=== PATIENT | male | born 1960 | race Caucasian/White ===

== ENCOUNTER 2017-11-05 17:33 | Emergency (ER) | payer OTHER ==
[~2017-11-05] VITALS: Ht 170.2 cm; Wt 95.2 kg
[~2017-11-05 17:33] MED LIST: ALBU90OI61 INH; AMOX500 PO; BENZ100A PO; CODGUAEL PO; CYCL10 PO; DOXY100 PO; Flonase 0.05% N16 GM; HYDACE10B PO; HYDACE5 PO; LORA10ER PO; LORA2 PO; METPRE4DP PO; NAPR500 PO; OXYACE5T PO; PENVK250 PO; PENVK500 PO; RXPENVK250 PO; Zithromax250 MG PO
[2017-11-05 18:45] LABS: BASOPHILS ABSOLUTE AUTO 0.06 K/mm3 (0.00-0.23); BASOPHILS PERCENT AUTO 1 % (0-2); EOSINOPHILS PERCENT AUTO 1 % (0-6); Hematocrit 48.9 % (37.0-53.0); Hemoglobin 16.7 g/dL (13.5-17.5); IMMATURE GRAN ABSOLUTE AUTO 0.01 K/mm3 (0.00-0.10); IMMATURE GRAN PERCENT AUTO 0 % (0-1); LYMPHOCYTES ABSOLUTE AUTO 2.44 K/mm3 (0.84-5.20); LYMPHOCYTES PERCENT AUTO 35 % (21-46); MONOCYTES ABSOLUTE AUTO 0.72 K/mm3 (0.16-1.47); MONOCYTES PERCENT AUTO 10 % (4-13); Mean Corpuscular HGB 33.1 pg (26.0-34.0); Mean Corpuscular HGB Conc 34.2 g/dL (31.5-36.5); Mean Corpuscular Volume 97 fL (80-100); Mean Platelet Volume 10.9 fL (9.1-12.4); NEUTROPHILS ABSOLUTE AUTO 3.65 K/mm3 (1.96-9.15); NEUTROPHILS PERCENT AUTO 52 % (41-73); Platelet Count 190 K/mm3 (150-400); RDW Coefficient Variation 13.2 % (11.7-14.2); RDW Standard Deviation 47.4 fL (35.1-46.3); Red Blood Cell Count 5.05 M/mm3 (4.30-5.90); White Blood Cell Count 6.98 K/mm3 (4.00-11.30)
[2017-11-05 18:57] LABS: Alanine Aminotransfer (ALT/SGP 83 U/L (12-78); Albumin, Blood 3.5 g/dL (3.4-5.0); Alk Phos 65 U/L (50-136); Anion Gap 12 mmol/L (6-16); Aspartate Aminotrans (AST/SGOT 59 U/L (12-37); Bilirubin, Total 0.4 mg/dL (0.1-1.0); Blood Urea Nitrogen 13 mg/dL (8-24); Bun/Creatinine Ratio 15.9 (12.0-20.0); CO2, Blood 24 mmol/L (21-32); Calcium, Blood 8.5 mg/dL (8.5-10.1); Chloride, Blood 106 mmol/L (98-108); Creatinine, Blood 0.82 mg/dL (0.60-1.20); Globulin, Blood 3.6 g/dL (2.2-4.0); Glomerular Filtration Rate >60 (60-); Glucose, Blood 102 mg/dL (70-99); Potassium, Blood 3.4 mmol/L (3.5-5.5); Sodium, Blood 142 mmol/L (136-145); Total Protein, Blood 7.1 g/dL (6.4-8.2)
[2017-11-05 19:00] LABS: International Normalized Ratio 1.04; Prothrombin Time Results 10.7 Sec (9.7-11.5)
[2017-11-05 21:07] LABS: Source, Urine Clean Catch
[2017-11-05 21:10] LABS: Bilirubin, Urine Neg (Neg); Blood, Urine Neg (Neg); Glucose Qualitative, Urine Neg (Neg); Ketones, Urine Neg (Neg); Leukocyte Esterase, Urine Neg (Neg); Nitrite, Urine Neg (Neg); Protein, Urine Neg (Neg); Specific Gravity, Urine 1.015 (1.003-1.022); Urobilinogen, Urine NORM (Normal)
[2017-11-05 21:19] LABS: Appearance, Urine Clear (Clear); Color, Urine Yellow (P-Yellow)
[2017-11-05] MEDS ORDERED: Zofran Odt4 MG PO (21:24)
[2017-11-05] MEDS ORDERED: OMEPRAZOLE MAGN20 MG PO (21:41)
== END 2017-11-05 22:09 | disposition home or self-care (01) ==
LOC: ER 17:33
PROVIDERS: Emergency Medicine
DX: R10.32 Left lower quadrant pain (principal); R11.2 Nausea with vomiting, unspecified; F17.210 Nicotine dependence, cigarettes, uncomplicated
CPT/HCPCS: 36415; 74177; 80053; 81003; 83690; 85025; 85610; 86850; 86900; 86901; 96361; 96365; 96366; 96375; 96376; 99284-25; C9113; J2405; J3010; J7030; Q9967

== ENCOUNTER 2017-11-14 20:50 | Emergency (ER) | payer OTHER ==
[~2017-11-14] VITALS: Ht 170.2 cm; Wt 91.6 kg
[~2017-11-14 20:50] MED LIST changes: +OMEPRAZOLE MAGN20 MG PO; +Zofran Odt4 MG PO
[2017-11-14 21:36] LABS: BASOPHILS ABSOLUTE AUTO 0.08 K/mm3 (0.00-0.23); BASOPHILS PERCENT AUTO 1 % (0-2); EOSINOPHILS ABSOLUTE AUTO 0.14 K/mm3 (0.00-0.68); EOSINOPHILS PERCENT AUTO 2 % (0-6); Hematocrit 49.1 % (37.0-53.0); Hemoglobin 16.9 g/dL (13.5-17.5); IMMATURE GRAN ABSOLUTE AUTO 0.01 K/mm3 (0.00-0.10); IMMATURE GRAN PERCENT AUTO 0 % (0-1); LYMPHOCYTES ABSOLUTE AUTO 2.56 K/mm3 (0.84-5.20); LYMPHOCYTES PERCENT AUTO 35 % (21-46); MONOCYTES PERCENT AUTO 10 % (4-13); Mean Corpuscular HGB 32.8 pg (26.0-34.0); Mean Corpuscular HGB Conc 34.4 g/dL (31.5-36.5); Mean Corpuscular Volume 95 fL (80-100); Mean Platelet Volume 10.4 fL (9.1-12.4); NEUTROPHILS ABSOLUTE AUTO 3.77 K/mm3 (1.96-9.15); NEUTROPHILS PERCENT AUTO 52 % (41-73); Platelet Count 221 K/mm3 (150-400); RDW Standard Deviation 46.5 fL (35.1-46.3); Red Blood Cell Count 5.15 M/mm3 (4.30-5.90); White Blood Cell Count 7.26 K/mm3 (4.00-11.30)
[2017-11-14 21:49] LABS: Alanine Aminotransfer (ALT/SGP 99 U/L (12-78); Albumin, Blood 3.6 g/dL (3.4-5.0); Albumin/Globulin Ratio 0.9 (0.8-1.8); Alk Phos 78 U/L (50-136); Anion Gap 7 mmol/L (6-16); Aspartate Aminotrans (AST/SGOT 64 U/L (12-37); Bilirubin, Total 0.3 mg/dL (0.1-1.0); Blood Urea Nitrogen 13 mg/dL (8-24); CO2, Blood 26 mmol/L (21-32); Calcium, Blood 8.5 mg/dL (8.5-10.1); Chloride, Blood 106 mmol/L (98-108); Creatinine, Blood 0.81 mg/dL (0.60-1.20); Globulin, Blood 4.1 g/dL (2.2-4.0); Glomerular Filtration Rate >60 (60-); Glucose, Blood 110 mg/dL (70-99); Potassium, Blood 3.8 mmol/L (3.5-5.5); Sodium, Blood 139 mmol/L (136-145); Total Protein, Blood 7.7 g/dL (6.4-8.2)
[2017-11-15] MEDS ORDERED: Percocet 5-3251 EACH PO (00:36)
== END 2017-11-15 00:48 | disposition home or self-care (01) ==
LOC: ER 20:50
PROVIDERS: Emergency Medicine
DX: N20.1 Calculus of ureter (principal); F17.210 Nicotine dependence, cigarettes, uncomplicated
CPT/HCPCS: 36415; 80053; 81000; 83690; 85025; 96361; 96374; 96375; 99284-25; J1885; J2405; J3010; J7030

== ENCOUNTER 2018-04-25 16:30 | Observation (INO) | payer OTHER ==
[~2018-04-25] VITALS: Ht 170.2 cm; Wt 94.3 kg
[~2018-04-25 16:30] MED LIST changes: +Percocet 5-3251 EACH PO
[2018-04-25] MEDS ORDERED: AMLO5 PO (16:55)
[2018-04-25] MEDS ORDERED: ASPI81CH PO (16:55)
[2018-04-25 17:08] LABS: BASOPHILS ABSOLUTE AUTO 0.06 K/mm3 (0.00-0.23); BASOPHILS PERCENT AUTO 1 % (0-2); EOSINOPHILS ABSOLUTE AUTO 0.08 K/mm3 (0.00-0.68); EOSINOPHILS PERCENT AUTO 1 % (0-6); Hematocrit 49.7 % (37.0-53.0); Hemoglobin 16.2 g/dL (13.5-17.5); IMMATURE GRAN ABSOLUTE AUTO 0.01 K/mm3 (0.00-0.10); IMMATURE GRAN PERCENT AUTO 0 % (0-1); LYMPHOCYTES PERCENT AUTO 27 % (21-46); MONOCYTES ABSOLUTE AUTO 0.73 K/mm3 (0.16-1.47); MONOCYTES PERCENT AUTO 9 % (4-13); Mean Corpuscular HGB 32.3 pg (26.0-34.0); Mean Corpuscular HGB Conc 32.6 g/dL (31.5-36.5); Mean Corpuscular Volume 99 fL (80-100); Mean Platelet Volume 10.5 fL (9.1-12.4); NEUTROPHILS ABSOLUTE AUTO 5.09 K/mm3 (1.96-9.15); NEUTROPHILS PERCENT AUTO 62 % (41-73); Platelet Count 224 K/mm3 (150-400); RDW Coefficient Variation 12.7 % (11.7-14.2); RDW Standard Deviation 46.5 fL (35.1-46.3); Red Blood Cell Count 5.01 M/mm3 (4.30-5.90); White Blood Cell Count 8.17 K/mm3 (4.00-11.30)
[2018-04-25 17:31] LABS: Alanine Aminotransfer (ALT/SGP 70 U/L (12-78); Albumin, Blood 3.8 g/dL (3.4-5.0); Albumin/Globulin Ratio 1.1 (0.8-1.8); Alk Phos 63 U/L (50-136); Anion Gap 6 mmol/L (6-16); Aspartate Aminotrans (AST/SGOT 51 U/L (12-37); Bilirubin, Total 0.6 mg/dL (0.1-1.0); Blood Urea Nitrogen 16 mg/dL (8-24); Bun/Creatinine Ratio 18.7 (12.0-20.0); CO2, Blood 29 mmol/L (21-32); Calcium, Blood 8.6 mg/dL (8.5-10.1); Chloride, Blood 107 mmol/L (98-108); Creatinine, Blood 0.86 mg/dL (0.60-1.20); Globulin, Blood 3.6 g/dL (2.2-4.0); Glomerular Filtration Rate >60 (60-); Glucose, Blood 86 mg/dL (70-99); Sodium, Blood 142 mmol/L (136-145); Total Protein, Blood 7.4 g/dL (6.4-8.2); Troponin I <0.015 ng/mL (0.000-0.040)
--- NOTE | 2018-04-25 21:00 | NUR ---
PT ARRIVAL. PT ARRIVED ON UNIT VIA GURNEY. PT WAS ABLE TO SELF TRANSFER FROM THE GURNEY TO THE BED INDEPENDENTLY. PT WAS ADMITTED FOR CP W/ACTIVITY THAT RESIDED W/NITRO. PT IS SCHEDULED FOR A LEXISCAN TOMORROW AND IS NPO AT THIS TIME. PT ADMITTED TO THIS RN THAT HE HAD STOPPED TAKING HIS MEDICATIONS AT HOME, A LEGISLATIVE CORRESPONDENT CONSULT WILL BE PLACED FOR THIS PT. TELE WAS PLACED, NSR IN THE 50'S-60'S, PT'S BP 143/100. NO EDEMA NOTED ON ASSESSMENT. L/S CLEAR T/O. BT PRESENT AND HYPERACTIVE, ABD IS SOFT AND NONTENDER TO PALP. PT DENIES ANY CHEST PAIN/PRESSURE, SOB OR N/V AT THIS TIME. CALL LIGHT IN REACH, BED IS LOCKED AND LOW WILL CONTINUE TO MONITOR.
[2018-04-25 21:58] LABS: U Amphetamine Screen Not Detected; U Barbituate Screen Not Detected; U Benzodiazapine Screen Not Detected; U Buprenorphine Screen Not Detected; U Cannabinoids Screen Not Detected; U Cocaine Screen Not Detected; U Methadone Screen Not Detected; U Methamphetamine Screen Not Detected; U Opiates Screen Not Detected; U Oxycodone Screen Not Detected; U Phencyclidine Screen Not Detected; U Propoxyphene Screen Not Detected
--- NOTE | 2018-04-26 05:09 | NUR ---
SHIFT SUMMARY. NO ACUTE CHANGES NOTED, PT'S VS HAVE BEEN STABLE. PT DENIES ANY CHEST PAIN/PRESSURE, SOB OR N/V. PT HAS BEEN NPO SINCE MIDNIGHT FOR LEXISCAN TODAY. CALL LIGHT IN REACH, BED IS LOCKED AND LOW WILL CONTINUE TO MONITOR UNTIL REPORT IS GIVEN TO ONCOMING RN.
[2018-04-26 10:15] LABS: CHOL/HDL RATIO 4.2; Cholesterol 255 mg/dL (50-200); HDL Cholesterol 61 mg/dL (>39); LDL/HDL RATIO 2.8; Low Density Lipoprotein Chol 173 mg/dL (0-110); Triglycerides 107 mg/dL (30-160); Very Low Density Lipoprot Chol 21 mg/dL (6-32)
--- NOTE | 2018-04-26 14:00 | NUR ---
REPORT CALLED TO MEDICAL FLOOR RN. PT TRANSFERRED TO MEDICAL FLOOR VIA .
--- NOTE | 2018-04-26 14:13 | NUR ---
Patient was lying in bed resting but quickly awoke at the sound of his name. I introduced myself and explained the department I am from and patient invited me come in and sit down. Patient shared that he was waiting for a stress test and was anxious about what might be happaning yet mixed with a strong desire to go home. I conducted a life review, explored patient's belief system and provided prayer. Patient responded well to all interventions and showed signs of reduced stress. PAtient expressed gratitude for visit
--- NOTE | 2018-04-26 17:52 | NUR ---
SHIFT SUMMARY PT WAS A PCU TRANSFER TO ROOM 361 THIS AFTERNOON. PT HAD 1ST PART OF STRESS TEST AFTER COMING UP TO FLOOR. PT INDEPENDENT IN ROOM. NO COMPLAINTS OF CHEST PAIN OR SHORTENSS OF BREATH SINCE TRANSFERRED. PT EATING DINNER AT THIS TIME. CALL LIGHT IN REACH. WILL CONTINUE TO MONITOR AND REPORT TO ONCOMING RN.
--- NOTE | 2018-04-27 05:07 | NUR ---
NOC SHIFT SUMMARY THIS PT HAS BEEN COMPLIANT WITH CARE THIS NIGHT. TOOK PM MEDS AND THEN FELL ASLEEP. HAS NOT COMPLAINED OF PAIN. HAS NOT VOICED ANY NEEDS OTHER THAN WANTING TO SLEEP. AAOX4 RESP EVEN AND UNLABORED. CURRENLTY SLEEPING RESTFULLY. WILL CONTINUE TO MONITOR.
--- NOTE | 2018-04-27 10:57 | NUR ---
Patient was sitting in bed and motioned me to enter his room when I walked by. Patient shared that he was hungry and wanting his stress test to be completed so he could eat. Patient said that he was feeling so much better than when he came in. I provided companionship, and emotional support. Patient thanked me for the visit.
--- NOTE | 2018-04-27 17:08 | NUR ---
SHIFT SUMMARY PT HAD SECOND PART OF STRESS TEST TODAY. PT HAS HAD NO COMPLAINTS OF CHEST PAIN OR SHORTNESS OF BREATH. WAITING FOR RESULTS TO BE READ FROM STRESS TEST. NO ACUTE CHANGES THIS SHIFT. PT INDEPENDENT IN ROOM. CALL LIGHT IN REACH. WILL CONTINUE TO MONITOR AND REPORT TO ONCOMING RN.
[2018-04-27] MEDS ORDERED: ATOR40TA PO (18:35)
[2018-04-27] MEDS ORDERED: METO25 PO (18:36)
--- NOTE | 2018-04-27 19:21 | NUR ---
DISCHARGE PT DISCHARGED TO HOME. THIS RN EXPLAINED DISCHARGE INSTRUCTIONS AND MEDICATIONS TO PT AND HE REPORTS HE UNDERSTANDS. IV REMOVED WITHOUT DIFFICULTY. MEDICATIONS FAXED TO [facility] IN [place]. PT AMBULATORY TO PRIVATE VEHICLE. PT'S BELONGINGS WITH PT AND PT'S SPOUSE.
== END 2018-04-27 19:17 | disposition home or self-care (01) ==
LOC: ER 16:30 → PCU 16:31 → MEDS 20:45 → PCU 04-26 12:23 → MEDS 04-26 14:41
PROVIDERS: Emergency Medicine; ADMIT Family Medicine
DX: I16.0 Hypertensive urgency (principal); E78.5 Hyperlipidemia, unspecified; F17.210 Nicotine dependence, cigarettes, uncomplicated; Z86.73 Personal history of transient ischemic attack (TIA), and cerebral infarction without residual deficits; Z91.14 Patient's other noncompliance with medication regimen; Z79.82 Long term (current) use of aspirin; Z79.01 Long term (current) use of anticoagulants; Z72.89 Other problems related to lifestyle; Z79.899 Other long term (current) drug therapy
CPT/HCPCS: 36415; 71046; 78452; 80053; 80061; 84443; 84484; 85025; 93005; 93010; 93017; 93306; 96372; 99285-25; A9500; G0378; J0706; J1650; J2785

== ENCOUNTER 2018-06-06 08:24 | Emergency (ER) | payer OTHER ==
[~2018-06-06] VITALS: Ht 170.2 cm; Wt 90.7 kg
[~2018-06-06 08:24] MED LIST changes: +AMLO5 PO; +ASPI81CH PO; +ATOR40TA PO; +METO25 PO
[2018-06-06] MEDS ORDERED: CYCL10 PO (09:56)
[2018-06-06] MEDS ORDERED: Percocet 5-3251 EACH PO (09:56)
[2018-06-06] MEDS ORDERED: Prednisone20 MG PO (09:56)
== END 2018-06-06 10:10 | disposition home or self-care (01) ==
LOC: ER 08:24
DX: M54.41 Lumbago with sciatica, right side (principal); Z79.82 Long term (current) use of aspirin; Z79.899 Other long term (current) drug therapy; I10 Essential (primary) hypertension; F17.210 Nicotine dependence, cigarettes, uncomplicated; Z86.73 Personal history of transient ischemic attack (TIA), and cerebral infarction without residual deficits
CPT/HCPCS: 99282

== ENCOUNTER 2018-09-15 07:38 | Emergency (ER) | payer OTHER ==
[~2018-09-15] VITALS: Ht 170.2 cm; Wt 90.7 kg
[~2018-09-15 07:38] MED LIST changes: +Prednisone20 MG PO
[2018-09-15] MEDS ORDERED: Cheratussin AC118 ML PO (09:10)
[2018-09-15] MEDS ORDERED: ALBU90OI61 INH (09:10)
[2018-09-15] MEDS ORDERED: BENZ100A PO (09:10)
[2018-09-15] MEDS ORDERED: PRED20 PO (09:10)
== END 2018-09-15 09:21 | disposition home or self-care (01) ==
LOC: ER 07:38
DX: J06.9 Acute upper respiratory infection, unspecified (principal); Z79.82 Long term (current) use of aspirin; Z79.899 Other long term (current) drug therapy; Z79.52 Long term (current) use of systemic steroids; F17.210 Nicotine dependence, cigarettes, uncomplicated
CPT/HCPCS: 71046; 99283-25

== ENCOUNTER 2018-09-28 07:46 | Emergency (ER) | payer OTHER ==
[~2018-09-28] VITALS: Ht 170.2 cm; Wt 90.7 kg
[~2018-09-28 07:46] MED LIST changes: +Cheratussin AC118 ML PO; +PRED20 PO
[2018-09-28] MEDS ORDERED: AMLO5 PO (08:01)
[2018-09-28 09:00] LABS: BASOPHILS ABSOLUTE AUTO 0.05 K/mm3 (0.00-0.23); BASOPHILS PERCENT AUTO 1 % (0-2); EOSINOPHILS ABSOLUTE AUTO 0.06 K/mm3 (0.00-0.68); EOSINOPHILS PERCENT AUTO 1 % (0-6); Hematocrit 51.4 % (37.0-53.0); IMMATURE GRAN ABSOLUTE AUTO 0.02 K/mm3 (0.00-0.10); IMMATURE GRAN PERCENT AUTO 0 % (0-1); LYMPHOCYTES ABSOLUTE AUTO 2.01 K/mm3 (0.84-5.20); LYMPHOCYTES PERCENT AUTO 29 % (21-46); MONOCYTES PERCENT AUTO 9 % (4-13); Mean Corpuscular HGB 32.1 pg (26.0-34.0); Mean Corpuscular HGB Conc 33.1 g/dL (31.5-36.5); Mean Corpuscular Volume 97 fL (80-100); NEUTROPHILS ABSOLUTE AUTO 4.26 K/mm3 (1.96-9.15); NEUTROPHILS PERCENT AUTO 61 % (41-73); Platelet Count 241 K/mm3 (150-400); RDW Coefficient Variation 12.1 % (11.7-14.2); RDW Standard Deviation 43.6 fL (35.1-46.3)
[2018-09-28 09:21] LABS: Alanine Aminotransfer (ALT/SGP 113 U/L (12-78); Albumin, Blood 3.9 g/dL (3.4-5.0); Albumin/Globulin Ratio 0.9 (0.8-1.8); Alk Phos 96 U/L (50-136); Anion Gap 8 mmol/L (6-16); Aspartate Aminotrans (AST/SGOT 78 U/L (12-37); Bilirubin, Total 0.6 mg/dL (0.1-1.0); Blood Urea Nitrogen 11 mg/dL (8-24); Bun/Creatinine Ratio 14.2 (12.0-20.0); CO2, Blood 27 mmol/L (21-32); Chloride, Blood 105 mmol/L (98-108); Creatinine, Blood 0.77 mg/dL (0.60-1.20); Globulin, Blood 4.3 g/dL (2.2-4.0); Glomerular Filtration Rate >60 (60-); Glucose, Blood 96 mg/dL (70-99); Potassium, Blood 4.1 mmol/L (3.5-5.5); Sodium, Blood 140 mmol/L (136-145); Total Protein, Blood 8.2 g/dL (6.4-8.2); Troponin I <0.015 ng/mL (0.000-0.040)
== END 2018-09-28 09:56 | disposition home or self-care (01) ==
LOC: ER 07:46
PROVIDERS: Physician Assistant
DX: J98.01 Acute bronchospasm (principal); Z79.899 Other long term (current) drug therapy; Z79.82 Long term (current) use of aspirin; Z86.73 Personal history of transient ischemic attack (TIA), and cerebral infarction without residual deficits; Z87.891 Personal history of nicotine dependence
CPT/HCPCS: 36415; 71046; 80053; 83880; 84484; 85025; 93005; 93010; 94640; 99284-25

== ENCOUNTER → 2020-03-01 | Outpatient (CLI) | payer OTHER ==
[~2020-03-01] MED LIST changes: +AMOCLA500 PO; +ASPI81CH; +FISH OIL 1,2001 EAC7; +LEVFLO500 PO; +PANT20 PO; +SPIR25 PO; +TAMS.4ER PO; +VISBIOME PROBIOTIC PO
[2020-03-01 16:06] LABS: BASOPHILS ABSOLUTE AUTO 0.12 K/mm3 (0.00-0.23); BASOPHILS PERCENT AUTO 1 % (0-2); EOSINOPHILS PERCENT AUTO 1 % (0-6); Hematocrit 47.1 % (37.0-53.0); Hemoglobin 16.2 g/dL (13.5-17.5); IMMATURE GRAN ABSOLUTE AUTO 0.06 K/mm3 (0.00-0.10); IMMATURE GRAN PERCENT AUTO 0 % (0-1); LYMPHOCYTES ABSOLUTE AUTO 2.01 K/mm3 (0.84-5.20); LYMPHOCYTES PERCENT AUTO 12 % (21-46); MONOCYTES ABSOLUTE AUTO 1.66 K/mm3 (0.16-1.47); MONOCYTES PERCENT AUTO 10 % (4-13); Mean Corpuscular HGB 35.4 pg (26.0-34.0); Mean Corpuscular HGB Conc 34.4 g/dL (31.5-36.5); Mean Corpuscular Volume 103 fL (80-100); Mean Platelet Volume 11.1 fL (9.1-12.4); NEUTROPHILS ABSOLUTE AUTO 12.72 K/mm3 (1.96-9.15); NEUTROPHILS PERCENT AUTO 76 % (41-73); Platelet Count 237 K/mm3 (150-400); RDW Coefficient Variation 12.9 % (11.7-14.2); RDW Standard Deviation 49.1 fL (35.1-46.3); Red Blood Cell Count 4.57 M/mm3 (4.30-5.90); White Blood Cell Count 16.67 K/mm3 (4.00-11.30)
[2020-03-01 16:15] LABS: Albumin, Blood 2.6 g/dL (3.4-5.0); Albumin/Globulin Ratio 0.4 (0.8-1.8); Bilirubin, Direct 1.6 mg/dL (0.0-0.3); Bilirubin, Total 2.6 mg/dL (0.1-1.0); Globulin, Blood 5.8 g/dL (2.2-4.0); Total Protein, Blood 8.4 g/dL (6.4-8.2)
[2020-03-01 16:33] LABS: International Normalized Ratio 1.22; Prothrombin Time Results 12.9 Sec (9.7-11.5)
[2020-03-02 09:01] LABS: HBSAG SCREEN Negative (Negative); HEP A AB, IGM Negative (Negative); HEP B CORE AB, IGM Negative (Negative); HEP C VIRUS AB >11.0 (0.0-0.9)
== END | disposition home or self-care (01) ==
LOC: LAB SHORT 15:45 → PLD 15:45
PROVIDERS: Chiropractor
DX: R10.9 Unspecified abdominal pain (principal); R53.83 Other fatigue
CPT/HCPCS: 80074; 80076; 84443; 85025; 85610; 87077; 87086; 87186

== ENCOUNTER 2020-03-05 11:17 | Inpatient (IN) | payer OTHER ==
[~2020-03-05] VITALS: Ht 170.2 cm; Wt 105.0 kg
[~2020-03-05 11:17] MED LIST changes: -AMOCLA500 PO; -ASPI81CH; -FISH OIL 1,2001 EAC7; -LEVFLO500 PO; -PANT20 PO; -SPIR25 PO; -TAMS.4ER PO; -VISBIOME PROBIOTIC PO
[2020-03-05 12:36] LABS: BASOPHILS ABSOLUTE AUTO 0.13 K/mm3 (0.00-0.23); BASOPHILS PERCENT AUTO 1 % (0-2); EOSINOPHILS ABSOLUTE AUTO 0.09 K/mm3 (0.00-0.68); EOSINOPHILS PERCENT AUTO 1 % (0-6); Hematocrit 50.1 % (37.0-53.0); Hemoglobin 16.7 g/dL (13.5-17.5); IMMATURE GRAN ABSOLUTE AUTO 0.08 K/mm3 (0.00-0.10); IMMATURE GRAN PERCENT AUTO 0 % (0-1); LYMPHOCYTES ABSOLUTE AUTO 1.82 K/mm3 (0.84-5.20); LYMPHOCYTES PERCENT AUTO 10 % (21-46); MONOCYTES ABSOLUTE AUTO 1.55 K/mm3 (0.16-1.47); MONOCYTES PERCENT AUTO 9 % (4-13); Mean Corpuscular HGB 34.2 pg (26.0-34.0); Mean Corpuscular HGB Conc 33.3 g/dL (31.5-36.5); Mean Corpuscular Volume 103 fL (80-100); Mean Platelet Volume 11.2 fL (9.1-12.4); NEUTROPHILS ABSOLUTE AUTO 14.55 K/mm3 (1.96-9.15); NEUTROPHILS PERCENT AUTO 80 % (41-73); Platelet Count 276 K/mm3 (150-400); RDW Coefficient Variation 12.6 % (11.7-14.2); RDW Standard Deviation 48.2 fL (35.1-46.3); Red Blood Cell Count 4.88 M/mm3 (4.30-5.90); White Blood Cell Count 18.22 K/mm3 (4.00-11.30)
[2020-03-05 13:11] LABS: Alanine Aminotransfer (ALT/SGP 59 U/L (12-78); Albumin, Blood 2.7 g/dL (3.4-5.0); Albumin/Globulin Ratio 0.4 (0.8-1.8); Alk Phos 165 U/L (50-136); Anion Gap 10 mmol/L (6-16); Aspartate Aminotrans (AST/SGOT 137 U/L (12-37); Bilirubin, Total 2.1 mg/dL (0.1-1.0); Blood Urea Nitrogen 6 mg/dL (8-24); Bun/Creatinine Ratio 9.3 (12.0-20.0); CO2, Blood 31 mmol/L (21-32); Calcium, Blood 8.5 mg/dL (8.5-10.1); Chloride, Blood 94 mmol/L (98-108); Creatinine, Blood 0.64 mg/dL (0.60-1.20); Globulin, Blood 6.2 g/dL (2.2-4.0); Glomerular Filtration Rate >60 (60-); Glucose, Blood 141 mg/dL (70-99); Potassium, Blood 2.8 mmol/L (3.5-5.5); Sodium, Blood 135 mmol/L (136-145); Total Protein, Blood 8.9 g/dL (6.4-8.2)
[2020-03-05 16:52] LABS: International Normalized Ratio 1.21; Prothrombin Time Results 12.8 Sec (9.7-11.5)
[2020-03-05 17:08] LABS: International Normalized Ratio 1.24; Prothrombin Time Results 13.1 Sec (9.7-11.5)
[2020-03-05 18:12] LABS: Source, Urine Voided
[2020-03-05 18:20] LABS: Appearance, Urine Hazy (Clear); Blood, Urine 1+ (Neg); Color, Urine Amber (P-Yellow); Glucose Qualitative, Urine Neg (Neg); Ketones, Urine 2+ (Neg); Leukocyte Esterase, Urine 1+ (Neg); Nitrite, Urine Pos (Neg); Protein, Urine 2+ (Neg); Urobilinogen, Urine 3+ (Normal)
[2020-03-05 18:36] LABS: Bilirubin, Urine 2+ (Neg)
[2020-03-05 18:38] LABS: Bacteria Rare /hpf; Mucus Light (0-Heavy); Red Blood Cells, Urine 0-2 /hpf (0-2); Squamous Epithelial Cells Rare /hpf (Few); Transitional Epithelial Cells Rare /hpf (0-Rare)
[2020-03-05 19:07] LABS: Influenza A, PCR Negative (NEGATIVE); Influenza B, PCR Negative (NEGATIVE); Resp Syncytial Virus, PCR Negative (NEGATIVE); SARS-Cov-2 (COVID-19) PCR, MMC Negative (NEGATIVE)
[2020-03-06 04:11] LABS: BASOPHILS PERCENT AUTO 1 % (0-2); EOSINOPHILS ABSOLUTE AUTO 0.14 K/mm3 (0.00-0.68); EOSINOPHILS PERCENT AUTO 1 % (0-6); Hematocrit 39.4 % (37.0-53.0); Hemoglobin 13.2 g/dL (13.5-17.5); IMMATURE GRAN ABSOLUTE AUTO 0.05 K/mm3 (0.00-0.10); IMMATURE GRAN PERCENT AUTO 0 % (0-1); LYMPHOCYTES ABSOLUTE AUTO 2.15 K/mm3 (0.84-5.20); LYMPHOCYTES PERCENT AUTO 15 % (21-46); MONOCYTES ABSOLUTE AUTO 1.86 K/mm3 (0.16-1.47); MONOCYTES PERCENT AUTO 13 % (4-13); Mean Corpuscular HGB 34.6 pg (26.0-34.0); Mean Corpuscular HGB Conc 33.5 g/dL (31.5-36.5); Mean Corpuscular Volume 103 fL (80-100); Mean Platelet Volume 11.3 fL (9.1-12.4); NEUTROPHILS PERCENT AUTO 71 % (41-73); Platelet Count 208 K/mm3 (150-400); RDW Coefficient Variation 12.9 % (11.7-14.2); RDW Standard Deviation 48.8 fL (35.1-46.3); Red Blood Cell Count 3.82 M/mm3 (4.30-5.90)
[2020-03-06 04:44] LABS: Alanine Aminotransfer (ALT/SGP 35 U/L (12-78); Albumin, Blood 2.2 g/dL (3.4-5.0); Albumin/Globulin Ratio 0.6 (0.8-1.8); Alk Phos 95 U/L (50-136); Anion Gap 6 mmol/L (6-16); Aspartate Aminotrans (AST/SGOT 74 U/L (12-37); Bilirubin, Total 1.8 mg/dL (0.1-1.0); Blood Urea Nitrogen 7 mg/dL (8-24); Bun/Creatinine Ratio 10.8 (12.0-20.0); CO2, Blood 32 mmol/L (21-32); Calcium, Blood 7.9 mg/dL (8.5-10.1); Chloride, Blood 100 mmol/L (98-108); Creatinine, Blood 0.65 mg/dL (0.60-1.20); Glomerular Filtration Rate >60 (60-); Glucose, Blood 93 mg/dL (70-99); Potassium, Blood 3.3 mmol/L (3.5-5.5); Sodium, Blood 138 mmol/L (136-145); Total Protein, Blood 6.2 g/dL (6.4-8.2)
[2020-03-08 04:56] LABS: Hematocrit 43.8 % (37.0-53.0); Hemoglobin 14.3 g/dL (13.5-17.5); Mean Corpuscular HGB Conc 32.6 g/dL (31.5-36.5); Mean Corpuscular Volume 104 fL (80-100); Mean Platelet Volume 10.6 fL (9.1-12.4); Platelet Count 209 K/mm3 (150-400); RDW Coefficient Variation 12.8 % (11.7-14.2); RDW Standard Deviation 49.1 fL (35.1-46.3); Red Blood Cell Count 4.21 M/mm3 (4.30-5.90); White Blood Cell Count 12.76 K/mm3 (4.00-11.30)
[2020-03-08 05:18] LABS: Alanine Aminotransfer (ALT/SGP 36 U/L (12-78); Albumin, Blood 2.1 g/dL (3.4-5.0); Albumin/Globulin Ratio 0.5 (0.8-1.8); Alk Phos 100 U/L (50-136); Anion Gap 5 mmol/L (6-16); Aspartate Aminotrans (AST/SGOT 73 U/L (12-37); Bilirubin, Total 1.3 mg/dL (0.1-1.0); Blood Urea Nitrogen 10 mg/dL (8-24); Bun/Creatinine Ratio 14.2 (12.0-20.0); CO2, Blood 32 mmol/L (21-32); Calcium, Blood 8.4 mg/dL (8.5-10.1); Chloride, Blood 102 mmol/L (98-108); Creatinine, Blood 0.71 mg/dL (0.60-1.20); Globulin, Blood 4.2 g/dL (2.2-4.0); Glomerular Filtration Rate >60 (60-); Glucose, Blood 95 mg/dL (70-99); Potassium, Blood 3.5 mmol/L (3.5-5.5); Sodium, Blood 139 mmol/L (136-145); Total Protein, Blood 6.3 g/dL (6.4-8.2)
[2020-03-08 10:28] LABS: Automated BF WBC Count 0.449 K/mm3 (0-999); Body Fluid WBC Count 449 /mm3 (0-999)
[2020-03-08 10:51] LABS: RBC Count, Body Fluid 51 /mm3 (0-0)
[2020-03-08 11:22] LABS: Appearance, Body Fluid Hazy (Clear); Color, Body Fluid Yellow (None-Yellow); Total Cell Count, Body Fluid 100
[2020-03-09 05:08] LABS: BASOPHILS PERCENT AUTO 1 % (0-2); EOSINOPHILS ABSOLUTE AUTO 0.23 K/mm3 (0.00-0.68); EOSINOPHILS PERCENT AUTO 2 % (0-6); Hematocrit 41.1 % (37.0-53.0); Hemoglobin 13.5 g/dL (13.5-17.5); IMMATURE GRAN ABSOLUTE AUTO 0.04 K/mm3 (0.00-0.10); IMMATURE GRAN PERCENT AUTO 0 % (0-1); LYMPHOCYTES ABSOLUTE AUTO 2.07 K/mm3 (0.84-5.20); LYMPHOCYTES PERCENT AUTO 16 % (21-46); MONOCYTES ABSOLUTE AUTO 1.23 K/mm3 (0.16-1.47); MONOCYTES PERCENT AUTO 10 % (4-13); Mean Corpuscular HGB 33.8 pg (26.0-34.0); Mean Corpuscular HGB Conc 32.8 g/dL (31.5-36.5); Mean Corpuscular Volume 103 fL (80-100); Mean Platelet Volume 10.5 fL (9.1-12.4); NEUTROPHILS ABSOLUTE AUTO 9.14 K/mm3 (1.96-9.15); NEUTROPHILS PERCENT AUTO 71 % (41-73); Platelet Count 196 K/mm3 (150-400); RDW Coefficient Variation 12.9 % (11.7-14.2); RDW Standard Deviation 49.1 fL (35.1-46.3); White Blood Cell Count 12.81 K/mm3 (4.00-11.30)
[2020-03-09] MEDS ORDERED: AMOCLA500 PO (10:43)
[2020-03-09] MEDS ORDERED: SPIR25 PO (10:43)
== END 2020-03-09 14:18 | disposition home or self-care (01) | DRG 871 ==
LOC: ER 11:17 → ERHOLD 20:14 → MEDS 03-06 11:35 → ENPENDDIS 03-09 10:02 → MEDS 03-09 14:18
PROVIDERS: Emergency Medicine; Internal Medicine; ADMIT Internal Medicine
PROC: 0W9G3ZZ Drainage of Peritoneal Cavity, Percutaneous Approach (ICD-10-PCS; principal; 2020-03-05)
DX: A41.9 Sepsis, unspecified organism (principal); K65.2 Spontaneous bacterial peritonitis; E87.6 Hypokalemia; F10.10 Alcohol abuse, uncomplicated; Z20.828 Contact with and (suspected) exposure to other viral communicable diseases; K70.31 Alcoholic cirrhosis of liver with ascites; E78.5 Hyperlipidemia, unspecified; K59.00 Constipation, unspecified; Z86.73 Personal history of transient ischemic attack (TIA), and cerebral infarction without residual deficits; I10 Essential (primary) hypertension; F17.210 Nicotine dependence, cigarettes, uncomplicated
CPT/HCPCS: 0241U; 36415; 49083; 71045; 74177; 80053; 81001; 83605; 83690; 83880; 84484; 85025; 85027; 85610; 85730; 87040; 87070; 87086; 87205; 89051; 93005; 93010; 96365-59; 96375-59; 99285-25; A9270; A9270-GY; J0696; J1650; J2060; J2405; J3010; J3480; J7030; P9046; Q9967

== ENCOUNTER 2020-03-11 04:32 | Inpatient (IN) | payer OTHER ==
[~2020-03-11] VITALS: Ht 170.2 cm; Wt 110.2 kg
[~2020-03-11 04:32] MED LIST changes: +AMOCLA500 PO; +SPIR25 PO
[2020-03-11 04:52] LABS: BASOPHILS ABSOLUTE AUTO 0.19 K/mm3 (0.00-0.23); BASOPHILS PERCENT AUTO 1 % (0-2); EOSINOPHILS PERCENT AUTO 2 % (0-6); Hemoglobin 15.6 g/dL (13.5-17.5); IMMATURE GRAN ABSOLUTE AUTO 0.11 K/mm3 (0.00-0.10); IMMATURE GRAN PERCENT AUTO 1 % (0-1); LYMPHOCYTES ABSOLUTE AUTO 2.84 K/mm3 (0.84-5.20); LYMPHOCYTES PERCENT AUTO 15 % (21-46); MONOCYTES ABSOLUTE AUTO 1.78 K/mm3 (0.16-1.47); MONOCYTES PERCENT AUTO 10 % (4-13); Mean Corpuscular HGB 34.4 pg (26.0-34.0); Mean Corpuscular HGB Conc 33.9 g/dL (31.5-36.5); Mean Corpuscular Volume 102 fL (80-100); Mean Platelet Volume 10.5 fL (9.1-12.4); NEUTROPHILS PERCENT AUTO 72 % (41-73); Platelet Count 262 K/mm3 (150-400); RDW Coefficient Variation 12.8 % (11.7-14.2); Red Blood Cell Count 4.53 M/mm3 (4.30-5.90); White Blood Cell Count 18.42 K/mm3 (4.00-11.30)
[2020-03-11 05:02] LABS: Source, Urine Clean Catch
[2020-03-11 05:03] LABS: Appearance, Urine Clear (Clear); Blood, Urine 3+ (Neg); Color, Urine Amber (P-Yellow); Glucose Qualitative, Urine 1+ (Neg); Ketones, Urine 2+ (Neg); Leukocyte Esterase, Urine 1+ (Neg); Nitrite, Urine Pos (Neg); Protein, Urine 2+ (Neg); Urobilinogen, Urine 2+ (Normal)
[2020-03-11 05:04] LABS: Bilirubin, Urine 1+ (Neg)
[2020-03-11 05:05] LABS: Bacteria Many /hpf; Mucus Mod (0-Heavy); Red Blood Cells, Urine 0-2 /hpf (0-2); Squamous Epithelial Cells Few /hpf (Few)
[2020-03-11 05:14] LABS: Alanine Aminotransfer (ALT/SGP 54 U/L (12-78); Albumin, Blood 2.8 g/dL (3.4-5.0); Albumin/Globulin Ratio 0.7 (0.8-1.8); Alk Phos 107 U/L (50-136); Anion Gap 9 mmol/L (6-16); Aspartate Aminotrans (AST/SGOT 104 U/L (12-37); Bilirubin, Total 1.8 mg/dL (0.1-1.0); Blood Urea Nitrogen 8 mg/dL (8-24); Bun/Creatinine Ratio 12.1 (12.0-20.0); CO2, Blood 25 mmol/L (21-32); Calcium, Blood 8.3 mg/dL (8.5-10.1); Chloride, Blood 102 mmol/L (98-108); Creatinine, Blood 0.66 mg/dL (0.60-1.20); Globulin, Blood 4.3 g/dL (2.2-4.0); Glomerular Filtration Rate >60 (60-); Glucose, Blood 143 mg/dL (70-99); Potassium, Blood 3.4 mmol/L (3.5-5.5); Sodium, Blood 136 mmol/L (136-145); Total Protein, Blood 7.1 g/dL (6.4-8.2)
--- NOTE | 2020-03-11 06:40 | NUR ---
REPORT RECEIVED FROM MAXIMO FRANK VIA ER.
[2020-03-11] MEDS ORDERED: ASPI81CH (15:31)
[2020-03-11] MEDS ORDERED: FISH OIL 1,2001 EAC7 (16:03)
--- NOTE | 2020-03-11 18:35 | NUR ---
PT EATING DINNER WHILE DANGLING AT BEDSIDE. PT EXPERIENCING MILD ANXIETY WITH CIWA SCORES OF 5-9. PT MEDICATED PER EMAR. NO FLUIDS RUNNING AT THIS TIME. RAC IS FLUSHING WITH RESISTANCE. PGLIDE MAY BE NEEDED. PM NURSES WILL BE INFORMED. PT ON TELE AND ROOM AIR. STAFF WILL CONT TO MONITOR ON Q2H VS AND Q1 CIWA.
--- NOTE | 2020-03-12 05:23 | NUR ---
SUPERVISORY GEOGRAPHER SUMMARY PT A&OX4, ABLE TO MAKE NEEDS KNOWN. PLEASANT AND COOPERATIVE TO CARE. PT SBA TO BATHROOM. PT MEDICATED FOR L FLANK PAIN X1 PER EMAR. PT CALM AND RESTED IN BED T/O SHIFT. NO C/O CP, SOB, OR N&V. CIWA SCORES RANGING FROM 1-4 THIS SHIFT. PT RESTING IN ROOM AT THIS TIME, BED AT LOWEST POSITION, CALL LIGHT WITHIN REACH.
[2020-03-12 05:34] LABS: BASOPHILS ABSOLUTE AUTO 0.09 K/mm3 (0.00-0.23); BASOPHILS PERCENT AUTO 1 % (0-2); EOSINOPHILS ABSOLUTE AUTO 0.31 K/mm3 (0.00-0.68); EOSINOPHILS PERCENT AUTO 2 % (0-6); Hematocrit 42.4 % (37.0-53.0); Hemoglobin 14.4 g/dL (13.5-17.5); IMMATURE GRAN ABSOLUTE AUTO 0.07 K/mm3 (0.00-0.10); IMMATURE GRAN PERCENT AUTO 1 % (0-1); LYMPHOCYTES ABSOLUTE AUTO 2.51 K/mm3 (0.84-5.20); LYMPHOCYTES PERCENT AUTO 17 % (21-46); MONOCYTES ABSOLUTE AUTO 1.69 K/mm3 (0.16-1.47); MONOCYTES PERCENT AUTO 12 % (4-13); Mean Corpuscular HGB 34.8 pg (26.0-34.0); Mean Corpuscular Volume 102 fL (80-100); Mean Platelet Volume 10.7 fL (9.1-12.4); NEUTROPHILS ABSOLUTE AUTO 9.93 K/mm3 (1.96-9.15); NEUTROPHILS PERCENT AUTO 68 % (41-73); Platelet Count 223 K/mm3 (150-400); RDW Coefficient Variation 12.9 % (11.7-14.2); RDW Standard Deviation 49.1 fL (35.1-46.3); Red Blood Cell Count 4.14 M/mm3 (4.30-5.90)
[2020-03-12 05:51] LABS: International Normalized Ratio 1.23
[2020-03-12 06:03] LABS: Alanine Aminotransfer (ALT/SGP 48 U/L (12-78); Albumin, Blood 2.3 g/dL (3.4-5.0); Albumin/Globulin Ratio 0.5 (0.8-1.8); Alk Phos 98 U/L (50-136); Anion Gap 7 mmol/L (6-16); Aspartate Aminotrans (AST/SGOT 87 U/L (12-37); Bilirubin, Total 1.3 mg/dL (0.1-1.0); Blood Urea Nitrogen 12 mg/dL (8-24); Bun/Creatinine Ratio 12.9 (12.0-20.0); CO2, Blood 26 mmol/L (21-32); Calcium, Blood 8.2 mg/dL (8.5-10.1); Chloride, Blood 104 mmol/L (98-108); Creatinine, Blood 0.93 mg/dL (0.60-1.20); Globulin, Blood 4.2 g/dL (2.2-4.0); Glomerular Filtration Rate >60 (60-); Glucose, Blood 94 mg/dL (70-99); Magnesium, Blood 2.1 mg/dL (1.6-2.4); Phosphorus, Blood 3.8 mg/dL (2.5-4.9); Sodium, Blood 137 mmol/L (136-145); Total Protein, Blood 6.5 g/dL (6.4-8.2)
[2020-03-12 11:19] LABS: pH, Body Fluid 7.9
[2020-03-12 11:23] LABS: Automated BF WBC Count 0.423 K/mm3 (0-999); Body Fluid WBC Count 423 /mm3 (0-999)
[2020-03-12 11:43] LABS: Albumin, Body Fluid 0.6 g/dL; Glucose, Body Fluid 116 mg/dL; Lactate Dehydrogenase, Body Fl 65 U/L; Protein, Body Fluid 1.1 g/dL
[2020-03-12 11:51] LABS: RBC Count, Body Fluid 41 /mm3 (0-0)
[2020-03-12 12:00] LABS: Appearance, Body Fluid Hazy (Clear); Color, Body Fluid L Yellow (None-Yellow); Total Cell Count, Body Fluid 100
[2020-03-12] MEDS ORDERED: AMOCLA500 PO (16:01)
--- NOTE | 2020-03-12 17:01 | NUR ---
SUMMARY PT IS A/O X4, PLEASANT/COOPERATIVE AFFECT. UP IND IN ROOM. DX ACUTE PYELONEPHRITIS, KIDNEY STONE. DR MALDONADO STATE CT SHOW SMALL STONE, NO NEED FOR URETER STENT, CANCEL CONSULT FOR DR MAURER. PT STATE CONTINUING L FLANK PAIN TODAY, HAVE GIVEN FENTANYL & NORCO FOR GOOD PAIN CONTROL/RELIEF. HX ETOH ABUSE, CIRRHOSIS. ABDOMEN FIRM/DISTENDED THIS AM, HE WENT OUT FOR PARACENTESIS, 5.6 LITERS OFF. ABDOMEN CONTINUES DISTENDED HOWEVER HE STATE MUCH MORE COMFORTABLE & FEELS SOFTER. DR MALDONADO ORDER ALBUMEN FOLLOWING PROCEDURE. PT STATE CONTINUING UE TREMORS, MILD ANXIETY, CIWA 3-5, HAVE GIVEN LIBRIUM 25MG X2 TODAY. VSS.
--- NOTE | 2020-03-12 17:39 | NUR ---
Spiritual care note: Per admit trigger, I met with Igor and his SO, Evelyn, at bedside. I offered education about ACP. Igor was very interested in completing and Advanced Directive naming Evelyn as his MPOA. Because he does not have a current form of ID, advanced directive was unable to be notarized. I advised they take AD forms home with them to have 2 witnesses sign to validate. Igor appears to understand life-style changes are needed. Prayer for strength provided. I will remain available.
--- NOTE | 2020-03-13 04:28 | NUR ---
SHIFT SUMMARY- PT. A&O, PLEASANT AND COOPERATIVE WITH CARE. C/O LT SIDED FLANK PAIN LAST NIGHT. MEDICATED PER EMAR WITH GOOD EFFECT. PT. ASLEEP MOST OF THE SHIFT, NO APPARENT DISTRESS NOTED. INDEPENDENT IN ROOM, URINE STRAINED, NO STONE NOTED. PT. S/P PARACENTESIS, ABD DISTENDED AND TENDER. PT. DENIED ANY OTHER NEEDS DURING THE NIGHT, VSS. CALL LIGHT WITHIN REACH AND SIDE RAILS UPX2. WILL CONT TO MONITOR.
[2020-03-13 06:25] LABS: Magnesium, Blood 2.2 mg/dL (1.6-2.4)
[2020-03-13 06:26] LABS: Phosphorus, Blood 3.5 mg/dL (2.5-4.9)
[2020-03-13] MEDS ORDERED: PANT20 PO (11:34)
[2020-03-13] MEDS ORDERED: TAMS.4ER PO (11:35)
[2020-03-13] MEDS ORDERED: VISBIOME PROBIOTIC PO (11:37)
[2020-03-13] MEDS ORDERED: LEVFLO500 PO (11:38)
--- NOTE | 2020-03-13 12:47 | NUR ---
DISCHARGE DR MALDONADO IN THIS AM TO ASSESS, PT STATE L FLANK PAIN IMPROVING, STATE ABDOMINAL DISTENTION/DISCOMFORT IMPROVED FOLLOWING PARACENTESIS YESTERDAY. DR MALDONADO STATE OK FOR D/C HOME TODAY, PROVIDE ORDERS. PT WILL F/U 1 WEEK w [facility]. SCRIPTS FAXED TO [facility]/REQUEST. IV D/C INTACT. D/C INSTRUCT REVIEWED w PT. HIS COME IN FOR TRANSPORTATION HOME. W/C ESCORT FROM HOSP PROVIDED. PT IS PLEASANT/APPRECIATIVE, STATES SATISFACTION.
== END 2020-03-13 12:30 | disposition home or self-care (01) | DRG 872 ==
LOC: ER 04:32 → MEDS 05:57
PROVIDERS: Emergency Medicine; Family Medicine; Internal Medicine; ADMIT Internal Medicine
PROC: 0W9G3ZZ Drainage of Peritoneal Cavity, Percutaneous Approach (ICD-10-PCS; principal; 2020-03-11)
DX: A41.9 Sepsis, unspecified organism (principal); N13.6 Pyonephrosis; F10.20 Alcohol dependence, uncomplicated; E87.6 Hypokalemia; E78.5 Hyperlipidemia, unspecified; K70.31 Alcoholic cirrhosis of liver with ascites; Z20.828 Contact with and (suspected) exposure to other viral communicable diseases; N20.0 Calculus of kidney; F17.210 Nicotine dependence, cigarettes, uncomplicated; Z86.73 Personal history of transient ischemic attack (TIA), and cerebral infarction without residual deficits; I10 Essential (primary) hypertension; Z87.442 Personal history of urinary calculi
CPT/HCPCS: 36415; 49083; 74176; 80053; 81001; 82042; 82945; 83615; 83735; 83986; 84100; 84157; 85025; 85610; 87070; 87086; 87205; 89051; 94762; 96361; 96374; 99285-25; A9270; A9270-GY; C9113; G0480; J0696; J1170; J1650; J3010; J7030; P9046

== ENCOUNTER 2020-03-22 13:20 | Day surgery (SDC) | payer OTHER ==
[~2020-03-22 13:20] MED LIST changes: +ASPI81CH; +FISH OIL 1,2001 EAC7; +LEVFLO500 PO; +PANT20 PO; +TAMS.4ER PO; +VISBIOME PROBIOTIC PO
== END 2020-03-22 22:47 | disposition home or self-care (01) ==
LOC: US 13:20
DX: K70.31 Alcoholic cirrhosis of liver with ascites (principal); B18.2 Chronic viral hepatitis C; I10 Essential (primary) hypertension; F17.210 Nicotine dependence, cigarettes, uncomplicated; Z79.82 Long term (current) use of aspirin; Z79.899 Other long term (current) drug therapy; Z86.73 Personal history of transient ischemic attack (TIA), and cerebral infarction without residual deficits
CPT/HCPCS: 49083

== ENCOUNTER 2020-04-02 13:30 | Day surgery (SDC) | payer OTHER | END 2020-04-02 22:54 | disposition home or self-care (01) | LOC: US 13:30 | DX: K70.31 Alcoholic cirrhosis of liver with ascites (principal); B18.2 Chronic viral hepatitis C; N10 Acute pyelonephritis; F10.20 Alcohol dependence, uncomplicated; F17.210 Nicotine dependence, cigarettes, uncomplicated; I10 Essential (primary) hypertension; E78.00 Pure hypercholesterolemia, unspecified; Z79.899 Other long term (current) drug therapy; Z79.82 Long term (current) use of aspirin; Z86.73 Personal history of transient ischemic attack (TIA), and cerebral infarction without residual deficits; Z20.828 Contact with and (suspected) exposure to other viral communicable diseases | CPT/HCPCS: 49083 ==

== ENCOUNTER 2020-04-09 13:43 | Day surgery (SDC) | payer OTHER | END 2020-04-09 16:39 | disposition home or self-care (01) | LOC: US 13:43 → ATC 13:43 → US 14:00 → ATC 16:39 | DX: K70.31 Alcoholic cirrhosis of liver with ascites (principal); Z79.82 Long term (current) use of aspirin; Z79.899 Other long term (current) drug therapy; Z20.822 Contact with and (suspected) exposure to COVID-19 | CPT/HCPCS: 49083; 96365; P9041; P9046 ==

== ENCOUNTER 2020-04-16 14:20 | Day surgery (SDC) | payer OTHER | END 2020-04-16 22:49 | disposition home or self-care (01) | LOC: US 14:20 | DX: K70.31 Alcoholic cirrhosis of liver with ascites (principal); B18.2 Chronic viral hepatitis C; F17.210 Nicotine dependence, cigarettes, uncomplicated; K21.9 Gastro-esophageal reflux disease without esophagitis; Z79.899 Other long term (current) drug therapy; Z20.822 Contact with and (suspected) exposure to COVID-19; Z86.73 Personal history of transient ischemic attack (TIA), and cerebral infarction without residual deficits; Z79.82 Long term (current) use of aspirin | CPT/HCPCS: 49083 ==

== ENCOUNTER 2020-04-30 13:16 | Day surgery (SDC) | payer OTHER | END 2020-04-30 23:45 | disposition home or self-care (01) | LOC: US 13:16 | DX: K70.31 Alcoholic cirrhosis of liver with ascites (principal); B18.2 Chronic viral hepatitis C; F17.210 Nicotine dependence, cigarettes, uncomplicated; K21.9 Gastro-esophageal reflux disease without esophagitis; Z79.899 Other long term (current) drug therapy; Z86.73 Personal history of transient ischemic attack (TIA), and cerebral infarction without residual deficits; Z79.82 Long term (current) use of aspirin | CPT/HCPCS: 76705 ==

== ENCOUNTER 2020-05-14 13:30 | Day surgery (SDC) | payer OTHER | END 2020-05-14 23:59 | disposition home or self-care (01) | LOC: US 13:30 | DX: K70.31 Alcoholic cirrhosis of liver with ascites (principal) | CPT/HCPCS: 76705 ==

== ENCOUNTER 2020-05-28 14:15 | Day surgery (SDC) | payer OTHER | END 2020-05-28 22:58 | disposition home or self-care (01) | LOC: US 14:15 | DX: R18.8 Other ascites (principal); E04.2 Nontoxic multinodular goiter; J90 Pleural effusion, not elsewhere classified | CPT/HCPCS: 76705 ==

== ENCOUNTER 2020-06-11 13:57 | Day surgery (SDC) | payer OTHER | END 2020-06-11 23:07 | disposition home or self-care (01) | LOC: US 13:57 | DX: K70.31 Alcoholic cirrhosis of liver with ascites (principal) | CPT/HCPCS: 76705 ==

== ENCOUNTER 2020-06-25 13:10 | Day surgery (SDC) | payer OTHER | END 2020-06-25 23:42 | disposition home or self-care (01) | LOC: US 13:10 | DX: K70.30 Alcoholic cirrhosis of liver without ascites (principal) | CPT/HCPCS: 76705 ==

== ENCOUNTER 2020-06-29 09:55 | Day surgery (SDC) | payer OTHER ==
[~2020-06-29] VITALS: Ht 170.2 cm; Wt 84.2 kg
[2020-06-29] MEDS ORDERED: SPIR25 (10:36)
[2020-06-29] MEDS ORDERED: FURO40 (10:36)
[2020-06-29] MEDS ORDERED: TAMS.4ER (10:36)
--- NOTE | 2020-06-29 11:50 | NUR ---
06/29/20 1150 Cassie Otaes USED 10ML EPINEHPHRINE 0.1MG/ML USED TO ELEVATE/STOP BLEEDING OF DESCENDING COLON POLYP
--- NOTE | 2020-06-29 15:29 | NUR ---
06/29/20 1529 Cassie Oates LATE ENTRY PATIENT REFUSED MULTIPLE OFFERS OF PO FLUIDS.
== END 2020-06-29 12:20 | disposition home or self-care (01) ==
LOC: ORSCSDS 09:55
PROVIDERS: Internal Medicine Gastroenterology
PROC: 0DBM8ZX Excision of Descending Colon, Via Natural or Artificial Opening Endoscopic, Diagnostic (ICD-10-PCS; principal; 2020-06-29 11:30)
DX: Z12.11 Encounter for screening for malignant neoplasm of colon (principal); Z13.810 Encounter for screening for upper gastrointestinal disorder; D12.4 Benign neoplasm of descending colon; K44.9 Diaphragmatic hernia without obstruction or gangrene; K20.90 Esophagitis, unspecified without bleeding; K76.6 Portal hypertension; K31.89 Other diseases of stomach and duodenum; K64.1 Second degree hemorrhoids; K64.4 Residual hemorrhoidal skin tags; B19.20 Unspecified viral hepatitis C without hepatic coma; I10 Essential (primary) hypertension; F17.210 Nicotine dependence, cigarettes, uncomplicated; Z86.73 Personal history of transient ischemic attack (TIA), and cerebral infarction without residual deficits; G47.33 Obstructive sleep apnea (adult) (pediatric); Z79.899 Other long term (current) drug therapy
CPT/HCPCS: J2704; J7120

== ENCOUNTER 2020-11-05 10:55 | Inpatient (IN) | payer OTHER ==
[~2020-11-05] VITALS: Ht 170.2 cm; Wt 56.0 kg
[~2020-11-05 10:55] MED LIST changes: +FURO40 PO
[2020-11-05 11:28] LABS: BASOPHILS ABSOLUTE AUTO 0.05 K/mm3 (0.00-0.23); BASOPHILS PERCENT AUTO 1 % (0-2); EOSINOPHILS ABSOLUTE AUTO 0.13 K/mm3 (0.00-0.68); EOSINOPHILS PERCENT AUTO 2 % (0-6); Hematocrit 43.6 % (37.0-53.0); Hemoglobin 14.1 g/dL (13.5-17.5); IMMATURE GRAN ABSOLUTE AUTO 0.01 K/mm3 (0.00-0.10); IMMATURE GRAN PERCENT AUTO 0 % (0-1); LYMPHOCYTES ABSOLUTE AUTO 1.59 K/mm3 (0.84-5.20); LYMPHOCYTES PERCENT AUTO 24 % (21-46); MONOCYTES ABSOLUTE AUTO 0.41 K/mm3 (0.16-1.47); MONOCYTES PERCENT AUTO 6 % (4-13); Mean Corpuscular HGB 31.1 pg (26.0-34.0); Mean Corpuscular HGB Conc 32.3 g/dL (31.5-36.5); Mean Corpuscular Volume 96 fL (80-100); NEUTROPHILS ABSOLUTE AUTO 4.36 K/mm3 (1.96-9.15); NEUTROPHILS PERCENT AUTO 66 % (41-73); NRBC ABSOLUTE 0.02 K/mm3 (0.00-0.02); NRBC Auto 0.3 /100 WBC (0.0-0.2); Platelet Count 154 K/mm3 (150-400); RDW Coefficient Variation 13.1 % (11.7-14.2); RDW Standard Deviation 46.5 fL (35.1-46.3); Red Blood Cell Count 4.54 M/mm3 (4.30-5.90); White Blood Cell Count 6.55 K/mm3 (4.00-11.30)
[2020-11-05 11:52] LABS: Alanine Aminotransfer (ALT/SGP 31 U/L (12-78); Albumin, Blood 3.3 g/dL (3.4-5.0); Albumin/Globulin Ratio 0.7 (0.8-1.8); Alk Phos 82 U/L (50-136); Anion Gap 3 mmol/L (6-16); Aspartate Aminotrans (AST/SGOT 27 U/L (12-37); Bilirubin, Total 0.6 mg/dL (0.1-1.0); Blood Urea Nitrogen 14 mg/dL (8-24); Bun/Creatinine Ratio 16.5 (12.0-20.0); CO2, Blood 27 mmol/L (21-32); Calcium, Blood 8.9 mg/dL (8.5-10.1); Chloride, Blood 107 mmol/L (98-108); Creatinine, Blood 0.85 mg/dL (0.60-1.20); Globulin, Blood 4.5 g/dL (2.2-4.0); Glomerular Filtration Rate >60 (60-); Glucose, Blood 104 mg/dL (70-99); Potassium, Blood 4.1 mmol/L (3.5-5.5); Sodium, Blood 137 mmol/L (136-145); Total Protein, Blood 7.8 g/dL (6.4-8.2)
[2020-11-05] MEDS ORDERED: RIBAVIRIN PO (13:46)
[2020-11-06 04:33] LABS: BASOPHILS ABSOLUTE AUTO 0.05 K/mm3 (0.00-0.23); BASOPHILS PERCENT AUTO 1 % (0-2); EOSINOPHILS ABSOLUTE AUTO 0.15 K/mm3 (0.00-0.68); EOSINOPHILS PERCENT AUTO 2 % (0-6); Hematocrit 38.9 % (37.0-53.0); Hemoglobin 12.3 g/dL (13.5-17.5); IMMATURE GRAN ABSOLUTE AUTO 0.02 K/mm3 (0.00-0.10); IMMATURE GRAN PERCENT AUTO 0 % (0-1); LYMPHOCYTES ABSOLUTE AUTO 1.65 K/mm3 (0.84-5.20); LYMPHOCYTES PERCENT AUTO 24 % (21-46); MONOCYTES ABSOLUTE AUTO 0.52 K/mm3 (0.16-1.47); MONOCYTES PERCENT AUTO 8 % (4-13); Mean Corpuscular HGB 30.1 pg (26.0-34.0); Mean Corpuscular HGB Conc 31.6 g/dL (31.5-36.5); Mean Corpuscular Volume 95 fL (80-100); NEUTROPHILS ABSOLUTE AUTO 4.39 K/mm3 (1.96-9.15); NEUTROPHILS PERCENT AUTO 65 % (41-73); Platelet Count 156 K/mm3 (150-400); RDW Coefficient Variation 13.1 % (11.7-14.2); Red Blood Cell Count 4.08 M/mm3 (4.30-5.90); White Blood Cell Count 6.78 K/mm3 (4.00-11.30)
[2020-11-06 04:52] LABS: Alanine Aminotransfer (ALT/SGP 25 U/L (12-78); Albumin, Blood 2.7 g/dL (3.4-5.0); Albumin/Globulin Ratio 0.8 (0.8-1.8); Alk Phos 68 U/L (50-136); Anion Gap 4 mmol/L (6-16); Aspartate Aminotrans (AST/SGOT 18 U/L (12-37); Bilirubin, Total 0.6 mg/dL (0.1-1.0); Blood Urea Nitrogen 15 mg/dL (8-24); Bun/Creatinine Ratio 15.7 (12.0-20.0); CHOL/HDL RATIO 3.5; CO2, Blood 26 mmol/L (21-32); Calcium, Blood 8.1 mg/dL (8.5-10.1); Chloride, Blood 109 mmol/L (98-108); Cholesterol 199 mg/dL (50-200); Creatinine, Blood 0.96 mg/dL (0.60-1.20); Globulin, Blood 3.6 g/dL (2.2-4.0); Glomerular Filtration Rate >60 (60-); Glucose, Blood 91 mg/dL (70-99); HDL Cholesterol 57 mg/dL (>39); LDL/HDL RATIO 2.3; Low Density Lipoprotein Chol 131 mg/dL (0-110); Potassium, Blood 4.1 mmol/L (3.5-5.5); Sodium, Blood 139 mmol/L (136-145); Total Protein, Blood 6.3 g/dL (6.4-8.2); Triglycerides 53 mg/dL (30-160); Very Low Density Lipoprot Chol 10 mg/dL (6-32)
--- NOTE | 2020-11-06 05:45 | NUR ---
SHIFT SUMMARY A/OX4, FLAT AFFECT. COOPERATIVE WITH CARE. SBA TO BATHROOM. L. SIDED WEAKNESS AND L. FACIAL DROOP NOTED. C/O MILD L. TEMPORAL HEADACHE THAT HAS BEEN ONGOING THE LAST 6 DAYS. VSS, NO ACUTE CHANGES AT THIS TIME. BED IN LOWEST POSITION WITH CALL LIGHT IN REACH. WILL CONTINUE TO MONITOR AND REPORT TO ONCOMING RN.
--- NOTE | 2020-11-06 12:07 | NUR ---
Echocardiogram usinbg 9.0ml of agitated saline contrast performed.
--- NOTE | 2020-11-06 12:57 | NUR ---
Update 11/06/2020: PT/OT beau. completed this am. At this time recommending PT outpatient dependent upon hospital progress. Pt. lives at home with girlfriend. Does have stairs leading into to home. Pt. does not currently drive. Transportation could be an anticipated barrier post discharge. [facility] patient - transportation to appointments will be covered through [facility]. When discussing discharge planning with pt. I will ensure that he has the contact information [facility] discharge.
[2020-11-06] MEDS ORDERED: ASPI325 PO (14:46)
[2020-11-06] MEDS ORDERED: Acetaminophen325 M1 PO (14:46)
[2020-11-06] MEDS ORDERED: ATOR40TA PO (14:47)
--- NOTE | 2020-11-06 15:01 | NUR ---
Update 11/06/20 1450: Pt. discharging home per Dr. Whalen. Scheduled pt. for visit within 7 days on 11/13/20 at 10:40 am. Pt. denied any safety concerns or barriers to discharge. We discussed [facility] benefits and resources. Pt. was unaware that [facility] is contracted to provide transportation through [employer]. I provided him with the number to contact to schedule transportation to appointments. Advised pt. that following up with PCP within 7 days post discharge is very important. He stated his understanding and is agreeable to appointment date and time. [facility] team will follow-up with pt. within 24-48 hours. Pt. has transportation home and to get his medications. He denied any other questions or concerns.
--- NOTE | 2020-11-06 15:26 | NUR ---
PT DISCHARGED FROM THE UNIT. IV REMOVED. DISCHARGE INSTRUCTIONS REVIEWED. PT AMBULATED OFF THE UNIT. INSTRUCTED ON FOLLOW UP APTS.
== END 2020-11-06 15:23 | disposition home or self-care (01) | DRG 66 ==
LOC: ER 10:55 → ERHOLD 18:27 → MEDS 22:30
PROVIDERS: Emergency Medicine; ADMIT Family Medicine
DX: I63.511 Cerebral infarction due to unspecified occlusion or stenosis of right middle cerebral artery (principal); R20.0 Anesthesia of skin; R29.810 Facial weakness; G83.24 Monoplegia of upper limb affecting left nondominant side; H53.8 Other visual disturbances; K70.30 Alcoholic cirrhosis of liver without ascites; R29.706 NIHSS score 6; R27.8 Other lack of coordination; G89.29 Other chronic pain; M54.9 Dorsalgia, unspecified; I87.2 Venous insufficiency (chronic) (peripheral); B19.20 Unspecified viral hepatitis C without hepatic coma; I10 Essential (primary) hypertension; F17.210 Nicotine dependence, cigarettes, uncomplicated; E78.5 Hyperlipidemia, unspecified; Z87.442 Personal history of urinary calculi; Z98.890 Other specified postprocedural states; Z79.899 Other long term (current) drug therapy; Z87.19 Personal history of other diseases of the digestive system
CPT/HCPCS: 36415; 70450; 70496; 70498; 80053; 80061; 82947; 85025; 85651; 86141; 93005; 93010; 93306; 96374; 97112; 97116; 97161; 97165; 97530; 99285-25; A9270; C9113; J1650; J2765; J7030; Q9967

== ENCOUNTER 2021-01-25 10:36 | Day surgery (SDC) | payer OTHER ==
[~2021-01-25] VITALS: Ht 170.2 cm; Wt 82.3 kg
[~2021-01-25 10:36] MED LIST changes: +ASPI325 PO; +Acetaminophen325 M1 PO; +RIBAVIRIN PO
[2021-01-25] MEDS ORDERED: FURO20 (11:16)
--- NOTE | 2021-01-25 12:30 | NUR ---
01/25/21 1230 Cheyanne Crawford CECUM WAS REACHED AT 1227 BUT THIS WAS ONLY SCHEDULED A FLEX SIG AND WANTS TO KEEP THE CHARGE FOR A FLEX SIG. MADE DECISION TO GO PAST [facility] BECAUSE THE PREP WAS GOOD AND THE PATIENT WAS CLEANED OUT VERY WELL WHICH ALLOWED SCOPE TO ADVANCE.
== END 2021-01-25 13:05 | disposition home or self-care (01) ==
LOC: ORSCSDS 10:36
PROVIDERS: Internal Medicine Gastroenterology
PROC: 0DJD8ZZ Inspection of Lower Intestinal Tract, Via Natural or Artificial Opening Endoscopic (ICD-10-PCS; principal; 2021-01-25 12:15)
DX: Z86.010 Personal history of colon polyps (principal); B19.20 Unspecified viral hepatitis C without hepatic coma; K64.4 Residual hemorrhoidal skin tags; I10 Essential (primary) hypertension; G47.33 Obstructive sleep apnea (adult) (pediatric); F17.210 Nicotine dependence, cigarettes, uncomplicated; Z79.82 Long term (current) use of aspirin; Z79.899 Other long term (current) drug therapy
CPT/HCPCS: J2704; J3010; J7120

== ENCOUNTER 2022-05-27 20:57 | Emergency (ER) | payer OTHER ==
[~2022-05-27] VITALS: Ht 170.2 cm; Wt 86.2 kg
[~2022-05-27 20:57] MED LIST changes: +FURO20
[2022-05-27 21:19] LABS: BASOPHILS ABSOLUTE AUTO 0.04 K/mm3 (0.00-0.23); BASOPHILS PERCENT AUTO 1 % (0-2); EOSINOPHILS PERCENT AUTO 1 % (0-6); Hematocrit 38.8 % (37.0-53.0); Hemoglobin 13.6 g/dL (13.5-17.5); IMMATURE GRAN ABSOLUTE AUTO 0.02 K/mm3 (0.00-0.10); IMMATURE GRAN PERCENT AUTO 0 % (0-1); LYMPHOCYTES ABSOLUTE AUTO 2.09 K/mm3 (0.84-5.20); LYMPHOCYTES PERCENT AUTO 24 % (21-46); MONOCYTES ABSOLUTE AUTO 0.58 K/mm3 (0.16-1.47); MONOCYTES PERCENT AUTO 7 % (4-13); Mean Corpuscular HGB 30.8 pg (26.0-34.0); Mean Corpuscular HGB Conc 35.1 g/dL (31.5-36.5); Mean Corpuscular Volume 88 fL (80-100); Mean Platelet Volume 10.4 fL (9.1-12.4); NEUTROPHILS ABSOLUTE AUTO 5.82 K/mm3 (1.96-9.15); NEUTROPHILS PERCENT AUTO 67 % (41-73); Platelet Count 145 K/mm3 (150-400); RDW Coefficient Variation 12.8 % (11.7-14.2); RDW Standard Deviation 41.2 fL (35.1-46.3); Red Blood Cell Count 4.42 M/mm3 (4.30-5.90); White Blood Cell Count 8.65 K/mm3 (4.00-11.30)
[2022-05-27 21:28] LABS: Albumin, Blood 3.9 g/dL (3.4-5.0); Albumin/Globulin Ratio 1.1 (0.8-1.8); Bilirubin, Total 1.2 mg/dL (0.1-1.0); Bun/Creatinine Ratio 21.8 (12.0-20.0); Calcium, Blood 9.3 mg/dL (8.5-10.1); Creatinine, Blood 0.92 mg/dL (0.60-1.20); Globulin, Blood 3.6 g/dL (2.2-4.0); Total Protein, Blood 7.5 g/dL (6.4-8.2)
[2022-05-27 22:46] LABS: Magnesium, Blood 1.8 mg/dL (1.6-2.4)
[2022-05-27 23:13] LABS: Base Excess Venous 2.4 mmol/L; Bicarbonate Venous 26.5 mmol/L (24.0-30.0); PCO2 Venous 36.7 mmHg (38-42); pH Blood Venous 7.46 (7.34-7.37)
[2022-05-27 23:42] LABS: Source, Urine Clean Catch
[2022-05-27 23:55] LABS: Appearance, Urine Clear (Clear); Bilirubin, Urine Neg (Neg); Blood, Urine Neg (Neg); Color, Urine Yellow (P-Yellow); Glucose Qualitative, Urine Neg (Neg); Ketones, Urine 1+ (Neg); Leukocyte Esterase, Urine Neg (Neg); Nitrite, Urine Neg (Neg); Protein, Urine Neg (Neg); Specific Gravity, Urine 1.015 (1.003-1.022); Urobilinogen, Urine NORM (Normal)
[2022-05-28 00:36] LABS: U Amphetamine Screen Not Detected; U Barbituate Screen Not Detected; U Methamphetamine Screen Not Detected
[2022-05-28 00:37] LABS: U Benzodiazapine Screen Not Detected; U Buprenorphine Screen Not Detected; U Cannabinoids Screen Not Detected; U Cocaine Screen Not Detected; U Methadone Screen Not Detected; U Opiates Screen Not Detected; U Oxycodone Screen Not Detected; U Phencyclidine Screen Not Detected; U Propoxyphene Screen Not Detected
[2022-05-28] MEDS ORDERED: METO10 PO (00:58)
== END 2022-05-28 01:16 | disposition home or self-care (01) ==
LOC: ER 20:57
PROVIDERS: Student in an Organized Health Care Education/Training Program
DX: G43.109 Migraine with aura, not intractable, without status migrainosus (principal); G25.2 Other specified forms of tremor; R27.8 Other lack of coordination; I10 Essential (primary) hypertension; E78.5 Hyperlipidemia, unspecified; F17.210 Nicotine dependence, cigarettes, uncomplicated; Z79.899 Other long term (current) drug therapy; Z79.82 Long term (current) use of aspirin
CPT/HCPCS: 70450; 70496; 70498; 80053; 81003; 82803; 83735; 84484; 85025; 93005; 93010; 96374-59; 96375-59; 99285-25; A9270; J1200; J2765; Q9967

== ENCOUNTER 2024-12-11 18:17 | Observation (INO) | payer OTHER ==
[~2024-12-11] VITALS: Ht 175.3 cm; Wt 99.8 kg
[~2024-12-11 18:17] MED LIST changes: -FURO20; +FURO20 PO; +METO10 PO
[2024-12-11 18:51] LABS: Alanine Aminotransfer (ALT/SGP 84.0 U/L (12-78); Albumin, Blood 3.1 g/dL (3.4-5.0); Albumin/Globulin Ratio 0.8 (0.8-1.8); Anion Gap 9.0 mmol/L (3-11); Aspartate Aminotrans (AST/SGOT 73.0 U/L (12-37); Bilirubin, Total 0.8 mg/dL (0.1-1.0); Blood Urea Nitrogen 5.0 mg/dL (8-24); CO2, Blood 22.0 mmol/L (21-32); Calcium, Blood 8.2 mg/dL (8.5-10.1); Chloride, Blood 105.0 mmol/L (98-108); Creatinine, Blood 0.7 mg/dL (0.60-1.20); Ethanol (Alcohol), Blood, Med 85.0 mg/dL; Globulin, Blood 4.0 g/dL (2.2-4.0); Glucose, Blood 95.0 mg/dL (70-99); Potassium, Blood 3.9 mmol/L (3.5-5.5); Sodium, Blood 132.0 mmol/L (136-145); Total Protein, Blood 7.1 g/dL (6.4-8.2)
[2024-12-11 18:52] LABS: BASOPHILS ABSOLUTE AUTO 0.09 K/mm3 (0.00-0.23); BASOPHILS PERCENT AUTO 1 % (0-2); EOSINOPHILS ABSOLUTE AUTO 0.23 K/mm3 (0.00-0.68); EOSINOPHILS PERCENT AUTO 3 % (0-6); Hematocrit 41.5 % (37.0-53.0); Hemoglobin 14.2 g/dL (13.5-17.5); IMMATURE GRAN ABSOLUTE AUTO 0.03 K/mm3 (0.00-0.10); IMMATURE GRAN PERCENT AUTO 0 % (0-1); LYMPHOCYTES ABSOLUTE AUTO 1.64 K/mm3 (0.84-5.20); LYMPHOCYTES PERCENT AUTO 18 % (21-46); MONOCYTES ABSOLUTE AUTO 0.83 K/mm3 (0.16-1.47); MONOCYTES PERCENT AUTO 9 % (4-13); Mean Corpuscular HGB Conc 34.2 g/dL (31.5-36.5); Mean Corpuscular Volume 92 fL (80-100); NEUTROPHILS ABSOLUTE AUTO 6.54 K/mm3 (1.96-9.15); NEUTROPHILS PERCENT AUTO 70 % (41-73); NRBC ABSOLUTE 0.00 K/mm3 (0.00-0.02); NRBC Auto 0.0 /100 WBC (0.0-0.2); Platelet Count 119 K/mm3 (150-400); RDW Coefficient Variation 13.0 % (11.7-14.2); RDW Standard Deviation 44.2 fL (35.1-46.3)
[2024-12-11 18:58] LABS: Prothrombin Time Results 11.9 Sec (9.7-11.5)
[2024-12-11 20:06] LABS: Source, Urine Clean Catch
[2024-12-11 20:11] LABS: Bilirubin, Urine Neg (Neg); Glucose Qualitative, Urine Neg (Neg); Ketones, Urine Neg (Neg); Leukocyte Esterase, Urine Neg (Neg); Protein, Urine Neg (Neg); Specific Gravity, Urine 1.010 (1.003-1.022); Urobilinogen, Urine NORM (Normal)
[2024-12-11 20:27] LABS: Color, Urine Pale Yellow (P-Yellow); U Amphetamine Screen Not Detected; U Barbituate Screen Not Detected; U Benzodiazapine Screen Not Detected; U Buprenorphine Screen Not Detected; U Cannabinoids Screen Not Detected; U Cocaine Screen Not Detected; U Methadone Screen Not Detected; U Methamphetamine Screen Not Detected; U Opiates Screen Not Detected; U Oxycodone Screen Not Detected; U Phencyclidine Screen Not Detected
[2024-12-11] MEDS ORDERED: Ondansetron HCl 2 MG / ML 2ML Vial IV PRN (23:30)
[2024-12-11] MEDS ORDERED: NS 1,000 ML IV ONE (23:30)
[2024-12-11] MEDS ORDERED: Enoxaparin 40 MG/0.4 ML SYR SC SCH (23:39)
[2024-12-12 00:28] VITALS: BP 149/90
--- NOTE | 2024-12-12 01:54 | NUR ---
PT ON TELE. RUNNING NSR IN THE 70S
--- NOTE | 2024-12-12 04:46 | NUR ---
PATIENT CAME TO FLOOR FROM ED WITH SIGNIFICANT TREMORS IN HIS ARMS EVEN AT REST. PER CIWA QUESTIONS PATIENT SCORED AN 8 AND WAS THEREFORE MEDICATED WITH LIBRIUM PER MAY. PATIENT STATES HE DRINKS "3-4 HARD LEMONADES A DAY" PATIENT IS STEADY ON HIS FEET AND TOILETED ON HIS OWN. PT DENIES ANY CHEST PAIN OVERNIGHT AND HAS NOT SHOWN ANY MORE SYMPTOMS OF WITHDRAWALS AT THIS TIME. WILL RECHECK BEFORE SHIFT END. PT RECIEVED AN IV DOSE OF THIAMINE AND HAS A BAG OF 1000ML OF NS RUNNING AT 100ML/HR, TOLERATING WELL. PATIENT IS INTERESTED IN NICOTINE REPLACEMENT WHILE HE IS IN THE HOSPITAL, I SUGGESTED WAITING ON ANY POTENTIAL CONSULTS BY SPECIALISTS BEFORE NICOTINE REPLACEMENT AND PATIENT AGREED. NO ACUTE CHANGES. BED IN LOW POSITION AND CALL [place] WITHIN REACH.
[2024-12-12 04:50] VITALS: BP 138/80
--- NOTE | 2024-12-12 06:13 | NUR ---
PT RESTING, NO VISUAL SIGNS OF WITHDRAWLS AT THIS TIME.
[2024-12-12 07:58] VITALS: BP 144/72
[2024-12-12 08:02] LABS: BASOPHILS ABSOLUTE AUTO 0.06 K/mm3 (0.00-0.23); BASOPHILS PERCENT AUTO 1 % (0-2); EOSINOPHILS ABSOLUTE AUTO 0.21 K/mm3 (0.00-0.68); EOSINOPHILS PERCENT AUTO 3 % (0-6); Hematocrit 38.7 % (37.0-53.0); Hemoglobin 13.4 g/dL (13.5-17.5); IMMATURE GRAN ABSOLUTE AUTO 0.01 K/mm3 (0.00-0.10); IMMATURE GRAN PERCENT AUTO 0 % (0-1); LYMPHOCYTES ABSOLUTE AUTO 1.38 K/mm3 (0.84-5.20); LYMPHOCYTES PERCENT AUTO 22 % (21-46); MONOCYTES ABSOLUTE AUTO 0.56 K/mm3 (0.16-1.47); MONOCYTES PERCENT AUTO 9 % (4-13); Mean Corpuscular HGB Conc 34.6 g/dL (31.5-36.5); Mean Corpuscular Volume 93 fL (80-100); NEUTROPHILS ABSOLUTE AUTO 4.18 K/mm3 (1.96-9.15); NEUTROPHILS PERCENT AUTO 65 % (41-73); NRBC ABSOLUTE 0.00 K/mm3 (0.00-0.02); NRBC Auto 0.0 /100 WBC (0.0-0.2); Platelet Count 103 K/mm3 (150-400); RDW Coefficient Variation 13.2 % (11.7-14.2); RDW Standard Deviation 45.1 fL (35.1-46.3)
[2024-12-12 08:31] LABS: Alanine Aminotransfer (ALT/SGP 73.0 U/L (12-78); Albumin, Blood 3.2 g/dL (3.4-5.0); Albumin/Globulin Ratio 1.0 (0.8-1.8); Anion Gap 5.0 mmol/L (3-11); Aspartate Aminotrans (AST/SGOT 51.0 U/L (12-37); Bilirubin, Total 1.3 mg/dL (0.1-1.0); Blood Urea Nitrogen 6.0 mg/dL (8-24); CO2, Blood 30.0 mmol/L (21-32); Calcium, Blood 8.3 mg/dL (8.5-10.1); Chloride, Blood 105.0 mmol/L (98-108); Creatinine, Blood 0.79 mg/dL (0.60-1.20); Globulin, Blood 3.3 g/dL (2.2-4.0); Glucose, Blood 92.0 mg/dL (70-99); Potassium, Blood 3.8 mmol/L (3.5-5.5); Sodium, Blood 136.0 mmol/L (136-145); Total Protein, Blood 6.5 g/dL (6.4-8.2)
[2024-12-12 15:12] VITALS: BP 141/80
--- NOTE | 2024-12-12 16:40 | NUR ---
SHIFT SUMMARY PATIENT SLEPT T/O MOST OF THE SHIFT. AT BEDSIDE OFF AND ON T/O THE DAY. A&OX4, COOPERATIVE WITH CARE. PATIENT EXPERIENCED TREMORS OF HIS HANDS A FEW TIMES THIS SHIFT, BUT NEVER REQUIRED LIBRIUM FROM WITHDRAWAL ASSESSMENT. COMPLAINED OF HEADACHE BUT DID NOT NEED PAIN MEDS. FLUIDS DC'D. PATIENT TOOK A SHOWER. DENIED ANY CP, DIZZINESS, OR SOB. NO ACUTE EVENTS THIS SHIFT. PATIENT CURRENTLY SLEEPING. BED IN THE LOWEST POSITION. CALL LIGHT WITHIN REACH.
[2024-12-12 19:50] VITALS: BP 159/82
[2024-12-13 00:06] VITALS: BP 132/66
[2024-12-13] MEDS ORDERED: Prozac20 MG PO (02:11)
[2024-12-13 04:34] VITALS: BP 118/67
[2024-12-13 06:05] LABS: BASOPHILS ABSOLUTE AUTO 0.04 K/mm3 (0.00-0.23); BASOPHILS PERCENT AUTO 1 % (0-2); EOSINOPHILS ABSOLUTE AUTO 0.20 K/mm3 (0.00-0.68); EOSINOPHILS PERCENT AUTO 3 % (0-6); Hematocrit 39.4 % (37.0-53.0); Hemoglobin 13.4 g/dL (13.5-17.5); IMMATURE GRAN ABSOLUTE AUTO 0.01 K/mm3 (0.00-0.10); IMMATURE GRAN PERCENT AUTO 0 % (0-1); LYMPHOCYTES ABSOLUTE AUTO 1.02 K/mm3 (0.84-5.20); LYMPHOCYTES PERCENT AUTO 16 % (21-46); MONOCYTES ABSOLUTE AUTO 0.65 K/mm3 (0.16-1.47); MONOCYTES PERCENT AUTO 10 % (4-13); Mean Corpuscular HGB Conc 34.0 g/dL (31.5-36.5); Mean Corpuscular Volume 93 fL (80-100); NEUTROPHILS ABSOLUTE AUTO 4.31 K/mm3 (1.96-9.15); NEUTROPHILS PERCENT AUTO 69 % (41-73); NRBC ABSOLUTE 0.00 K/mm3 (0.00-0.02); NRBC Auto 0.0 /100 WBC (0.0-0.2); Platelet Count 103 K/mm3 (150-400); RDW Coefficient Variation 13.2 % (11.7-14.2); RDW Standard Deviation 44.9 fL (35.1-46.3)
[2024-12-13 06:16] LABS: Prothrombin Time Results 11.9 Sec (9.7-11.5)
--- NOTE | 2024-12-13 06:18 | NUR ---
Shift Summary AOx4. Pleasant. Cooperative. Has been sleeping quietly and soundly during most rounds. CIWAs neg x 3. No acute events.
[2024-12-13 06:30] LABS: Alanine Aminotransfer (ALT/SGP 60.0 U/L (12-78); Albumin, Blood 3.0 g/dL (3.4-5.0); Albumin/Globulin Ratio 0.9 (0.8-1.8); Anion Gap 8.0 mmol/L (3-11); Aspartate Aminotrans (AST/SGOT 39.0 U/L (12-37); Bilirubin, Total 1.4 mg/dL (0.1-1.0); Blood Urea Nitrogen 10.0 mg/dL (8-24); CO2, Blood 27.0 mmol/L (21-32); Calcium, Blood 8.2 mg/dL (8.5-10.1); Chloride, Blood 105.0 mmol/L (98-108); Creatinine, Blood 0.86 mg/dL (0.60-1.20); Globulin, Blood 3.4 g/dL (2.2-4.0); Glucose, Blood 94.0 mg/dL (70-99); Potassium, Blood 4.0 mmol/L (3.5-5.5); Sodium, Blood 136.0 mmol/L (136-145); Total Protein, Blood 6.4 g/dL (6.4-8.2)
[2024-12-13 07:38] VITALS: BP 166/86
[2024-12-13] MEDS ORDERED: ASPI81CH PO (10:24)
[2024-12-13] MEDS ORDERED: CLOP75 PO (10:25)
[2024-12-13] MEDS ORDERED: Ativan1 MG PO (10:26)
[2024-12-13] MEDS ORDERED: ONDA4 PO (10:29)
[2024-12-13] MEDS ORDERED: Nicoderm Cq1 EACH TOP (10:30)
[2024-12-13] MEDS ORDERED: Nicoderm Cq1 EAC1 TOP (10:30)
--- NOTE | 2024-12-13 14:07 | NUR ---
DISCHARGE SUMMARY: A&Ox4. PLEASANT AND COOPERATIVE WITH CARE. CALLS APPROPRIATELY AND IS ABLE TO ADVOCATE NEEDS EFFECTIVELY. AMBULATES INDEPENDENTLY. CONTINENT OF BOWEL AND BLADDER; LBM TODAY. MEDS WHOLE c FLUIDS. TELE NSR. NO C/O PAIN OR DISCOMFORT. PATIENT PROVIDED WITH COPY OF DISCHARGE PLAN AND MEDICATION LIST. MED REC FAXED TO [facility]. INSTRUCTED TO FOLLOW-UP WITH PCP. ALL QUESTIONS ANSWERED TO DISCHARGING NURSE'S ABILITY AND PATIENT VOICED UNDERSTANDING OF DISCHARGE PLAN. IV ACCESS REMOVED AND PRESSURE DRESSING PLACED. LEFT FLOOR WITH ALL BELONGINGS AND DISCHARGE PACKET, ESCORTED BY . TRANSPORTATION PROVIDED BY VIA POV.
== END 2024-12-13 12:23 | disposition home health service (06) ==
LOC: ER 18:17 → MEDS 18:18
PROVIDERS: Family Medicine; Student in an Organized Health Care Education/Training Program; ADMIT Internal Medicine
DX: I69.354 Hemiplegia and hemiparesis following cerebral infarction affecting left non-dominant side (principal); I69.392 Facial weakness following cerebral infarction; R07.89 Other chest pain; I10 Essential (primary) hypertension; E78.5 Hyperlipidemia, unspecified; F17.210 Nicotine dependence, cigarettes, uncomplicated; F10.139 Alcohol abuse with withdrawal, unspecified; E66.9 Obesity, unspecified; Z68.32 Body mass index [BMI] 32.0-32.9, adult; Z79.02 Long term (current) use of antithrombotics/antiplatelets; Z79.82 Long term (current) use of aspirin; Z79.899 Other long term (current) drug therapy
CPT/HCPCS: 36415; 70450; 70496; 70498; 71046; 80053; 80320; 81003; 82947; 83880; 84484; 85025; 85610; 85730; 93005; 93010; 93306; 96361; 96365; 96372; 96376; 97112; 97162; 97166; 99285-25; A9270; G0378; J1650; J3411; J7030; Q9967